=== PATIENT | female | born 1970 | race Caucasian/White ===

== ENCOUNTER → 2023-12-22 | Outpatient (REF) | payer BC, MEDICARE ==
[~2023-12-22] MED LIST: AMLODIPINE BES2.5 MG PO; CYMBALTA30 MG PO; FOLIC ACID PO; FROVATRIPTAN; HYDROCODONE PO; NEXIUM40 MG PO; PLAQUENIL200 MG PO; SULINDAC200 MG PO; Z.0.HYDROCHLOROTHIA2; Z.0.PLAQUENIL200 MG; Z.0.ZESTRIL10 MG PO; [UNRECOGNIZED DRUG - OTHER]; methotrexate
== END ==
LOC: RAD 12:09 → MERGE 12:09 → EDSTATUS 13:00
PROVIDERS: ATTEND Internal Medicine Rheumatology
DX: M54.6 Pain in thoracic spine (principal)
CPT/HCPCS: 72146

== ENCOUNTER → 2024-04-15 | Outpatient (REF) | payer BC, MEDICARE | LOC: MRI 07:44 → EDSTATUS 08:00 | PROVIDERS: ATTEND Internal Medicine Rheumatology | DX: M54.6 Pain in thoracic spine (principal) | CPT/HCPCS: 72146 ==

== ENCOUNTER → 2025-02-26 | Outpatient (REF) | payer BC, MEDICARE | LOC: RAD 13:00 | PROVIDERS: ATTEND Internal Medicine Rheumatology | DX: M54.50 Low back pain, unspecified (principal) | CPT/HCPCS: 72110 ==

== ENCOUNTER → 2025-03-24 | Outpatient (REF) | payer BC, MEDICARE | LOC: MRI 09:04 | PROVIDERS: ATTEND Internal Medicine Rheumatology | DX: M47.816 Spondylosis without myelopathy or radiculopathy, lumbar region (principal) | CPT/HCPCS: 72148 ==